=== PATIENT | male | born 1975 | race Caucasian/White ===

== ENCOUNTER 2017-12-03 14:18 | Emergency (ER) | payer OTHER, BC ==
[~2017-12-03] VITALS: Ht 185.4 cm; Wt 101.2 kg
[2017-12-03 15:33] LABS: HEMATOCRIT 43.8 % (38.0-50.0); HEMOGLOBIN 15.3 G/DL (12.5-16.6); MCH 31.4 PG (29.0-34.0); MCHC 34.9 G/DL (30.0-36.0); MCV 89.8 FL (86-99); PLATELET COUNT 135 K/uL (156-360); RBC DIS.WIDTH-CV 13.3 % (11.8-14.6); RBC DIS.WIDTH-SD 43.6 % (39-53); RED BLOOD COUNT 4.88 M/uL (4.00-5.50)
[2017-12-03 15:44] LABS: ALBUMIN 4.6 g/dL (3.2-4.8); CHLORIDE 104 mEq/L (99-109)
[2017-12-03 15:45] LABS: POTASSIUM 4.2 mEq/L (3.7-5.4); SODIUM 138 mEq/L (136-147)
[2017-12-03 15:47] LABS: GLUCOSE 97 mg/dL (70-99); TOTAL PROTEIN 6.9 g/dL (6.4-8.3)
[2017-12-03 15:49] LABS: TOTAL BILIRUBIN 0.7 mg/dL (0.0-1.0)
[2017-12-03 15:50] LABS: ALKALINE PHOSPHATASE 77 IU/L (3-129); CREATININE 1.2 mg/dL (0.6-1.3); GFR ESTIMATE (CALCULATED) > 59 mL/min/ (58.99-99999)
[2017-12-03 15:52] LABS: AST (GOT) 26 IU/L (2-34); UREA NITROGEN (BUN) 16 mg/dL (9-23)
[2017-12-03 15:53] LABS: ALT (GPT) 32 IU/L (3-49)
[2017-12-03 15:54] LABS: LIPASE 19 U/L (1.0-51.0)
[2017-12-03 15:57] LABS: TROP-I INTERPRETATION NEGATIVE; TROPONIN-I < 0.01 ng/mL (0.0-0.30)
[2017-12-03 16:07] LABS: APPEARANCE CLEAR ((CLEAR)); BILIRUBIN NEGATIVE; BLOOD NEGATIVE; COLOR YELLOW ((YELLOW)); GLUCOSE (STRIP) NEGATIVE; KETONES NEGATIVE; LEUKOCYTES NEGATIVE; NITRITE NEGATIVE; PROTEIN (STRIP) NEGATIVE; SPECIFIC GRAVITY 1.023 (1.000-1.030); UCUL ADDED? NO; UROBILINOGEN 0.2 MG/DL (0.2-1.0)
[2017-12-03 19:30] VITALS: BP 147/97
== END 2017-12-03 19:33 | disposition short-term general hospital (02) ==
LOC: EME 14:18
PROVIDERS: Emergency Medicine
DX: K35.80 Unspecified acute appendicitis (principal); K38.1 Appendicular concretions; K80.20 Calculus of gallbladder without cholecystitis without obstruction; K57.30 Diverticulosis of large intestine without perforation or abscess without bleeding; I45.10 Unspecified right bundle-branch block; Z94.1 Heart transplant status; Z87.820 Personal history of traumatic brain injury
CPT/HCPCS: 74177; 80053; 81003; 83690; 83880; 84484; 85027; 93005; 99281; 99285; J2270; J7030; S0074

== ENCOUNTER 2018-01-03 17:12 | Emergency (ER) | payer BC, OTHER ==
[~2018-01-03] VITALS: Ht 185.4 cm; Wt 98.0 kg
[2018-01-03 17:40] LABS: BASOPHIL (%) 0.2 % (0-1); EOSINOPHIL (%) 1.1 % (0-5); EOSINOPHIL COUNT 0.1 K/uL (0-0.3); HEMATOCRIT 46.4 % (38.0-50.0); HEMOGLOBIN 16.6 G/DL (12.5-16.6); IMMATURE GRANULOCYTE (%) 0.3 % (0.0-0.7); LYMPHOCYTE (%) 18.8 % (15-42); MCH 31.3 PG (29.0-34.0); MCHC 35.8 G/DL (30.0-36.0); MCV 87.4 FL (86-99); MONOCYTE (%) 11.2 % (3-12); MONOCYTE COUNT 1.2 K/uL (0-0.8); NEUTROPHIL (%) 68.4 % (45-76); NEUTROPHIL COUNT 7.3 K/uL (1.8-6.4); PLATELET COUNT 182 K/uL (156-360); RBC DIS.WIDTH-SD 44.4 % (39-53); RED BLOOD COUNT 5.31 M/uL (4.00-5.50); WHITE BLOOD COUNT 10.6 K/uL (4.1-10.2)
[2018-01-03 17:49] LABS: CHLORIDE 108 mEq/L (99-109); POTASSIUM 3.8 mEq/L (3.7-5.4); SODIUM 139 mEq/L (136-147)
[2018-01-03 17:51] LABS: GLUCOSE 91 mg/dL (70-99)
[2018-01-03 17:55] LABS: CREATININE 1.3 mg/dL (0.6-1.3); GFR ESTIMATE (CALCULATED) > 59 mL/min/ (58.99-99999)
[2018-01-03 17:56] LABS: UREA NITROGEN (BUN) 16 mg/dL (9-23)
[2018-01-03 20:34] LABS: ALBUMIN 5.1 g/dL (3.2-4.8)
[2018-01-03 20:36] LABS: TOTAL PROTEIN 8.1 g/dL (6.4-8.3)
[2018-01-03 20:38] LABS: TOTAL BILIRUBIN 0.5 mg/dL (0.0-1.0)
[2018-01-03 20:39] LABS: ALKALINE PHOSPHATASE 84 IU/L (3-129)
[2018-01-03 20:42] LABS: ALT (GPT) 24 IU/L (3-49); AST (GOT) 25 IU/L (2-34); DIRECT BILIRUBIN 0.2 mg/dL (0.0-0.3)
[2018-01-03 20:43] LABS: LIPASE 34 U/L (1.0-51.0)
[2018-01-03 22:05] LABS: C DIFF TOXIN NEGATIVE (NEGATIVE)
[2018-01-03] MEDS ORDERED: KEFLEX500 MG PO (22:20)
[2018-01-03] MEDS ORDERED: BENTYL20 MG PO (22:20)
[2018-01-03 23:00] VITALS: BP 145/92
== END 2018-01-03 23:02 | disposition home or self-care (01) ==
LOC: EME 17:12
PROVIDERS: Emergency Medicine
DX: T81.4XXA Infection following a procedure, initial encounter (principal); R10.9 Unspecified abdominal pain; R19.7 Diarrhea, unspecified; Z90.49 Acquired absence of other specified parts of digestive tract; Z94.1 Heart transplant status
CPT/HCPCS: 74177; 80048; 80076; 81003; 83605; 83630; 83690; 85025; 87493; 87506; 99281; 99285